=== PATIENT | male | born 2000 | race Caucasian/White ===

== ENCOUNTER 2020-08-14 19:00 | Emergency (ER) | payer OTHER ==
[~2020-08-14] VITALS: Ht 185.4 cm; Wt 74.1 kg
[2020-08-14 20:10] VITALS: BP 126/74; PULSE 68; TEMP 97.9
== END 2020-08-14 20:37 | disposition home or self-care (01) ==
LOC: COL.ER 19:00
DX: S01.111A Laceration without foreign body of right eyelid and periocular area, initial encounter (principal); W22.8XXA Striking against or struck by other objects, initial encounter; Y93.67 Activity, basketball; Y92.310 Basketball court as the place of occurrence of the external cause

== ENCOUNTER → 2020-08-20 | Outpatient (CLI) | payer OTHER ==
[2020-08-20 15:24] VITALS: BP 126/64; PULSE 80
== END ==
LOC: COL.ER 15:18
DX: Z48.02 Encounter for removal of sutures (principal)